=== PATIENT | male | born 1995 | race Caucasian/White ===

== ENCOUNTER 2018-08-27 17:56 | Emergency (ER) | payer BC, OTHER ==
[2018-08-27] MEDS ORDERED: HYDROCOD/APAP 5/325 PREPACK#6 BTL TAKEHOME ONE (19:23)
[2018-08-27] MEDS ORDERED: CEPHALEXIN 500MG PREPACK#4 BTL TAKEHOME ONE (19:23)
--- NOTE | 2018-08-27 19:23 | EDPHY ---
H & P Stated Complaint: dx w/ pil. cyst 08/26--removal schd 08/29--here to be sure not getting infect Time Seen by Provider: 08/27/18 18:34 HPI/ROS: Chief complaint: Pilonidal abscess History of present illness: This is a 23-year-old male who presents to the emergency department for a pilonidal abscess. Patient reports he developed pain at the top of his gluteal cleft a few days ago. He went to urgent care yesterday. He was told he had a pilonidal abscess. He was started on amoxicillin. He was told to make an appointment with a surgeon for drainage. He called and has an appointment at the office of Dr. Sunitha Vizcarra although he does not believe he is going to actually see her. He has not actually established care with the surgeon as of yet. He reports ongoing pain and is concerned the abscess is worsening despite the antibiotics. Review of systems: A 10 point review of systems was obtained and other than described above was negative - Medical/Surgical History Hx Asthma: No Hx Chronic Respiratory Disease: No Hx Diabetes: No Hx Cardiac Disease: No Hx Renal Disease: No Hx Cirrhosis: No Hx Alcoholism: No Hx HIV/AIDS: No Hx Splenectomy or Spleen Trauma: No Other PMH: fractured coccyx 08/28 - Social History Smoking Status: Never smoked - Physical Exam Exam: General Appearance: Alert and no distress. Eyes: Pupils equal and round no injection. Respiratory: Chest is non tender, lungs are clear to auscultation. Cardiac: regular rate and rhythm Gastrointestinal: Abdomen is soft and non tender, no masses, bowel sounds normal. Musculoskeletal: Neck is supple and non tender. Extremities have full range of motion and are non tender. Skin: Patient has an area of erythema and edema to the top of the gluteal cleft consistent with a pull in all abscess. There is surrounding erythema. The area is tender to palpation, it is also tense. Constitutional: Initial Vital Signs Temperature (C) 37.0 C 08/27/18 17:59 Heart Rate 85 08/27/18 17:59 Respiratory Rate 16 08/27/18 17:59 Blood Pressure 128/83 H 08/27/18 17:59 O2 Sat (%) 94 08/27/18 17:59 O2 Delivery Mode Room Air Allergies/Adverse Reactions: No Known Allergies Allergy (Unverified 01/08/16 00:00) Home Medications: Medication Instructions Recorded Cephalexin [Keflex] 500 mg PO TID 5 Days cap 08/27/18 Propranolol HCl 08/27/18 Wellbutrin Xl 08/27/18 Medical Decision Making Procedures: Procedure: Pilonidal abscess. The patient's pilonidal abscess was located in the typical occasion of the superior gluteal cleft. I obtained verbal consent from the patient to drain the abscess who was informed about the possibility of bleeding and pain. The abscess was incised with a scalpel and a large amount of purulent drainage was expressed. I irrigated the wound and placed some packing. The patient tolerated the procedure well. The procedure was performed by myself. ED Course/Re-evaluation: Patient seen under the supervision of my secondary supervising physician Dr. Aliya Madsen. Patient presents to the emergency department for a pilonidal abscess. I have consulted with Dr. Reginaldo Randle, he is comfortable with me draining this in the emergency department. The procedure is performed, patient tolerated it well. I will switch patient from amoxicillin the Keflex as the feel this will provide better coverage. Home care is discussed including wound care and pain management. He is to keep his appointment on Wednesday with the Surgical group. Return precautions are given. Patient voiced understanding and agreement with the plan. Differential Diagnosis: Included but not limited to pilonidal cyst, pilonidal, cellulitis, - Data Points Medications Given: Discontinued Medications Hydrocodone Bitart/Acetaminophen ([place] 5/325mg Prepack#6) 1 btl TAKEHOME EDNOW ONE Stop: 08/27/18 19:24 Last Admin: 08/27/18 19:30 Dose: 1 btl Cephalexin (Keflex 500 Mg Prepack#4) 1 btl TAKEHOME EDNOW ONE PRN Reason: Protocol Stop: 08/27/18 19:24 Last Admin: 08/27/18 19:29 Dose: 1 btl Departure - Departure Disposition: Home, Routine, Self-Care Clinical Impression: Pilonidal abscess Condition: Good Instructions: Pilonidal Cyst (ED) Additional Instructions: Please follow-up with the surgeon You are full scheduled to see on Wednesday as planned for recheck The surgeon will remove the packing that was placed today Change her dressing every 12 hr, more often if it becomes saturated Discontinue the use of amoxicillin, start Keflex as directed In regards to pain control see the following: Use ibuprofen [600] mg [3] times a day for the next 2-3 days for pain In addition You have been prescribed [[place]] for pain. [Athens] contains Tylenol, do not take extra Tylenol/acetaminophen/Apap with it. It is sedating. If symptoms worsen or new symptoms develop return to the emergency room for recheck Referrals: NONE *PRIMARY CARE P,. [Primary Care Provider] - As per Instructions Reginaldo Randle MD [Medical Doctor] - As per Instructions Prescriptions: Cephalexin [Keflex] 500 mg PO TID 5 Days cap
[2018-08-27 19:33] VITALS: BP 136/88
== END 2018-08-27 19:25 | disposition home or self-care (01) ==
PROC: 0H98XZZ Drainage of Buttock Skin, External Approach (ICD-10-PCS; principal; 2018-08-27)
DX: L05.01 Pilonidal cyst with abscess (principal)